=== PATIENT | male | born 1970 | race Caucasian/White ===

== ENCOUNTER 2021-09-17 09:03 | Emergency (ER) | payer OTHER ==
[~2021-09-17] VITALS: Ht 177.8 cm; Wt 93.2 kg
--- NOTE | 2021-09-17 09:13 | PHYS DOC ---
Adult General Chief Complaint Chief Complaint: SHORTNESS OF BREATH HPI HPI Patient is a 51-year-old male presenting via EMS for shortness of breath. Reports onset was last night while at rest and subsequently had difficulty sleeping overnight. Sitting up made better, laying down made worse. Denies any pain just feels like he cannot take a deep breath then. Timing of symptoms has been constant since onset. Associated symptoms include increased feelings of claustrophobia and anxiety. He is concerned as he recently had outpatient right knee surgery 6 days ago and has been on aspirin therapy only, no prior history of blood clots and/or pulmonary embolism. Chews tobacco and abuses alcohol daily admitting to x2 drinks of either beer or vodka without other drug use. Patient unvaccinated against COVID-19 with recent positive infection diagnosed August 25, otherwise, no other pertinent medical issues disclosed. EMS report that on arrival he was found to be tachycardic otherwise hemodynamically stable and was subsequently brought to our ER for evaluation Review of Systems Review of Systems Fourteen body systems of review of systems have been reviewed. See HPI for pertinent positives and negative responses, other stack all other systems are negative, non-pertinent or non-contributory Physical Exam Physical Exam Constitutional: Well developed, well nourished, no acute distress, non-toxic appearance. HENT: Normocephalic, atraumatic, bilateral external ears normal, oropharynx moist, no oral exudates, nose normal. Eyes: PERRLA, EOMI, conjunctiva normal, no discharge. Neck: Normal range of motion, no tenderness, supple, no stridor. Cardiovascular: Heart rate regular, sinus rhythm, no murmurs rubs or gallops Lungs & Thorax: Bilateral breath sounds clear to auscultation Abdomen: Bowel sounds normal, soft, no tenderness, no masses, no pulsatile masses. Nonsurgical abdomen, no peritoneal signs Skin: Warm, dry, no erythema, no rash. Back: No tenderness, no CVA tenderness. Extremities: No tenderness, no cyanosis, no clubbing, ROM intact, no edema. Neurologic: Alert and oriented X 3, grossly normal motor & sensory function, no focal deficits noted. Psychologic: Anxious affect and mood Current Patient Data Vital Signs Vital Signs Date Time Temp Pulse Resp B/P (MAP) Pulse Ox O2 Delivery O2 Flow Rate FiO2 09/17/21 09:12 97.8 118 24 174/108 (130) 97 Room Air Vital Signs Date Time Temp Pulse Resp B/P (MAP) Pulse Ox O2 Delivery O2 Flow Rate FiO2 09/17/21 09:12 97.8 118 24 174/108 (130) 97 Room Air Lab Results Laboratory Tests Test 09/17/21 09:28 09/17/21 09:30 White Blood Count 4.9 x10^3/uL Red Blood Count 3.71 x10^6/uL Hemoglobin 12.0 g/dL Hematocrit 34.9 % Mean Corpuscular Volume 94 fL Mean Corpuscular Hemoglobin 32 pg Mean Corpuscular Hemoglobin Concent 34 g/dL Red Cell Distribution Width 12.9 % Platelet Count 254 x10^3/uL Neutrophils (%) (Auto) 59 % Lymphocytes (%) (Auto) 26 % Monocytes (%) (Auto) 10 % Eosinophils (%) (Auto) 5 % Basophils (%) (Auto) 1 % Neutrophils # (Auto) 2.9 x10^3uL Lymphocytes # (Auto) 1.3 x10^3/uL Monocytes # (Auto) 0.5 x10^3/uL Eosinophils # (Auto) 0.2 x10^3/uL Basophils # (Auto) 0.0 x10^3/uL Sodium Level 142 mmol/L Potassium Level 3.8 mmol/L Chloride Level 104 mmol/L Carbon Dioxide Level 28 mmol/L Anion Gap 10 Blood Urea Nitrogen 9 mg/dL Creatinine 1.0 mg/dL Estimated GFR (Cockcroft-Gault) 78.8 BUN/Creatinine Ratio 9 Glucose Level 102 mg/dL Calcium Level 8.6 mg/dL Total Bilirubin 0.6 mg/dL Aspartate Amino Transf (AST/SGOT) 64 U/L Alanine Aminotransferase (ALT/SGPT) 84 U/L Alkaline Phosphatase 87 U/L Troponin I High Sensitivity 6 ng/L LG-Iqx-R-Type Natriuretic Peptide 137 pg/mL Total Protein 7.0 g/dL Albumin 3.3 g/dL Albumin/Globulin Ratio 0.9 Influenza Type A (Rapid) Negative Influenza Type B (Rapid) Negative SARS-CoV-2 Antigen (Rapid) Negative Current Medications Medications (Trade) Dose Ordered Sig/Jessica Route PRN Reason Start Time Stop Time Status Last Admin Dose Admin Iohexol (Omnipaque 350 Mg/ml) 100 ml 1X ONCE IV 09/17/21 09:30 09/17/21 09:33 DC EKG EKG EKG ordered and interpreted by myself at 0933 hrs. as sinus rhythm at 94 bpm, unremarkable intervals, no axis deviation, T wave inversion noted in lead III, no acute ischemic findings specifically no right heart strain, no STEMI Radiology/Procedures Radiology/Procedures CTA CHEST INDICATION: SHOB WITH RECENT SURGERY Comparison: None. TECHNIQUE: Following the uneventful administration of 99 mL intravenous contrast axial CT sections were obtained through the lungs and upper abdomen. Multiplanar reconstructions and MIP images were obtained. PQRS compliance statement: One or more of the following individualized dose reduction techniques were utilized for this examination: 1. Automated exposure control 2. Adjustment of the mA and/or kV according to patient size 3. Use of iterative reconstruction technique FINDINGS: Pulmonary arteries: No evidence of pulmonary thromboembolic disease Lungs and Airways: No pulmonary mass or consolidation. No abnormality of the central airways. Pleura: The pleural spaces are normal. Heart and Mediastinum: The visualized thyroid is normal in size and attenuation. No axillary or supraclavicular lymphadenopathy. No mediastinal, hilar or retrocrural lymphadenopathy. Normal cardiac size. No pericardial effusion. Coronary artery atherosclerotic disease. Normal caliber thoracic aorta. Abdomen: Limited images through the upper abdomen show no abnormality of the visualized organs. Bones and Soft Tissues: The visualized bones and chest wall soft tissues are within normal limits. IMPRESSION: 1. No evidence of pulmonary thromboembolic disease. 2. No pulmonary mass or consolidation. 3. Coronary artery atherosclerotic disease Electronically signed by: Baljinder Box MD (09/17/2021 9:53 AM) [id number] Heart Score C/O Chest Pain: No HEART Score for Chest Pain: HEART Score for Chest Pain Response (Comments) Value History Slighlty/Non-Suspicious 0 ECG Normal 0 Age < 45 0 Risk Factors No Risk Factors 0 Troponin < Normal Limit 0 Total 0 Risk Factors: Risk Factors: DM, Current or recent (<one month) smoker, HTN, HLP, family history of CAD, obesity. Risk Scores: Risk Factors: DM, Current or recent (<one month) smoker, HTN, HLP, family history of CAD, obesity. Course & Med Decision Making Course & Med Decision Making ABCs unremarkable except for tachycardia on arrival likely due to anxiety that self resolved with verbal de-escalation HPI physical exam comprehensive ER work-up nonconcerning for any emergent or surgical issues, no PE per CT angiogram Reviewed patient case, he is on appropriate aspirin and other medications status post right lower extremity surgery. Patient has follow-up with primary care physician this afternoon with plans for close outpatient follow-up with surgeon I disclosed this might be an acute presentation more concerning pathology and so, strict return cautions discussed at length good understanding by patient and prior to ER departure Tiffany Disclaimer Tiffany Disclaimer This electronic medical record was generated, in whole or in part, using a voice recognition dictation system. Departure Departure: Impression: Primary Impression: Atypical chest pain Disposition: HOME / SELF CARE / HOMELESS Condition: STABLE Additional Instructions: You were seen for chest pain. Your workup did not show any acute abnormalities today, but does not indicate that you do not have underlying cardiovascular disease. You do need to follow up with your primary doctor and potentially a digital developer for further evaluation and treatment. You should return to the ED if you develop worsening chest pain, shortness of breath, fever, abnormal sweating, leg swelling, or any other new or concerning symptoms. YVES ROBERTO DO Sep 17, 2021 09:13
[2021-09-17] MEDS ORDERED: IOHEXOL 350 MG/ML 100 ML VIAL. IV ONE (09:30)
--- NOTE | 2021-09-17 09:55 | RAD ---
CTA CHEST INDICATION: SHOB WITH RECENT SURGERY Comparison: None. TECHNIQUE: Following the uneventful administration of 99 mL intravenous contrast axial CT sections we re obtained through the lungs and upper abdomen. Multiplanar reconstructions and MIP images were obta ined. PQRS compliance statement: One or more of the following individualized dose reduction techniques were utilized for this examinat ion: 1. Automated exposure control 2. Adjustment of the mA and/or kV according to patient size 3. Use of iterative reconstruction technique FINDINGS: Pulmonary arteries: No evidence of pulmonary thromboembolic disease Lungs and Airways: No pulmonary mass or consolidation. No abnormality of the central airways. Pleura: The pleural spaces are normal. Heart and Mediastinum: The visualized thyroid is normal in size and attenuation. No axillary or supra clavicular lymphadenopathy. No mediastinal, hilar or retrocrural lymphadenopathy. Normal cardiac size . No pericardial effusion. Coronary artery atherosclerotic disease. Normal caliber thoracic aorta. Abdomen: Limited images through the upper abdomen show no abnormality of the visualized organs. Bones and Soft Tissues: The visualized bones and chest wall soft tissues are within normal limits. IMPRESSION: 1. No evidence of pulmonary thromboembolic disease. 2. No pulmonary mass or consolidation. 3. Coronary artery atherosclerotic disease Electronically signed by: Baljinder Box MD (09/17/2021 9:53 AM) [id number]
[2021-09-17 10:02] LABS: BASO % 1 % (0-3); EOS # 0.2 x10^3/uL (0.0-0.7); EOS % 5 % (0-3); HEMATOCRIT 34.9 % (39.0-53.0); LYMPH # 1.3 x10^3/uL (1.0-4.8); LYMPH % 26 % (24-48); MEAN CORPUSCULAR HEMOGLOBIN 32 pg (25-35); MEAN CORPUSCULAR HGB CONC 34 g/dL (31-37); MEAN CORPUSCULAR VOLUME 94 fL (79-100); MONO # 0.5 x10^3/uL (0.0-1.1); MONO % 10 % (0-9); NEUT # 2.9 x10^3uL (1.8-7.7); NEUT % 59 % (31-73); PLATELET COUNT 254 x10^3/uL (140-400); RED BLOOD COUNT 3.71 x10^6/uL (4.30-5.70); RED CELL DISTRIBUTION WIDTH 12.9 % (11.5-14.5); WHITE BLOOD COUNT 4.9 x10^3/uL (4.0-11.0)
[2021-09-17 10:03] LABS: CALCIUM 8.6 mg/dL (8.5-10.1); GFR 78.8; POTASSIUM 3.8 mmol/L (3.5-5.1)
[2021-09-17 10:16] LABS: INFLUENZA A PATIENT NEGATIVE (NEGATIVE); INFLUENZA B PATIENT NEGATIVE (NEGATIVE)
[2021-09-17 10:16] LABS: ALBUMIN 3.3 g/dL (3.4-5.0); ALBUMIN/GLOBULIN RATIO 0.9 (1.0-1.7); TOTAL BILIRUBIN 0.6 mg/dL (0.2-1.0)
--- NOTE | 2021-09-17 10:34 | PDOC2 ---
CARDIAC CONSULT PAST SURGICAL HISTORY Past Surgical History: Other (right knee surgery) CURRENT MEDICATIONS Current Medications Current Medications Iohexol (Omnipaque 350 Mg/ml) 100 ml 1X ONCE IV ; Start 09/17/21 at 09:30; Stop 09/17/21 at 09:33; Status DC ALLERGIES Allergies: Coded Allergies: No Known Drug Allergies (Unverified , 09/17/21) VITALS Vital Signs Vital Signs Date Time Temp Pulse Resp B/P (MAP) Pulse Ox O2 Delivery O2 Flow Rate FiO2 09/17/21 09:12 97.8 118 24 174/108 (130) 97 Room Air LABS LABS Laboratory Tests Test 09/17/21 09:28 09/17/21 09:30 White Blood Count 4.9 x10^3/uL (4.0-11.0) Red Blood Count 3.71 x10^6/uL (4.30-5.70) Hemoglobin 12.0 g/dL (13.0-17.5) Hematocrit 34.9 % (39.0-53.0) Mean Corpuscular Volume 94 fL (79-100) Mean Corpuscular Hemoglobin 32 pg (25-35) Mean Corpuscular Hemoglobin Concent 34 g/dL (31-37) Red Cell Distribution Width 12.9 % (11.5-14.5) Platelet Count 254 x10^3/uL (140-400) Neutrophils (%) (Auto) 59 % (31-73) Lymphocytes (%) (Auto) 26 % (24-48) Monocytes (%) (Auto) 10 % (0-9) Eosinophils (%) (Auto) 5 % (0-3) Basophils (%) (Auto) 1 % (0-3) Neutrophils # (Auto) 2.9 x10^3uL (1.8-7.7) Lymphocytes # (Auto) 1.3 x10^3/uL (1.0-4.8) Monocytes # (Auto) 0.5 x10^3/uL (0.0-1.1) Eosinophils # (Auto) 0.2 x10^3/uL (0.0-0.7) Basophils # (Auto) 0.0 x10^3/uL (0.0-0.2) Sodium Level 142 mmol/L (136-145) Potassium Level 3.8 mmol/L (3.5-5.1) Chloride Level 104 mmol/L (98-107) Carbon Dioxide Level 28 mmol/L (21-32) Anion Gap 10 (6-14) Blood Urea Nitrogen 9 mg/dL (8-26) Creatinine 1.0 mg/dL (0.7-1.3) Estimated GFR (Cockcroft-Gault) 78.8 BUN/Creatinine Ratio 9 (6-20) Glucose Level 102 mg/dL (70-99) Calcium Level 8.6 mg/dL (8.5-10.1) Total Bilirubin 0.6 mg/dL (0.2-1.0) Aspartate Amino Transf (AST/SGOT) 64 U/L (15-37) Alanine Aminotransferase (ALT/SGPT) 84 U/L (16-63) Alkaline Phosphatase 87 U/L (46-116) Troponin I High Sensitivity 6 ng/L (4-75) BP-Qao-H-Type Natriuretic Peptide 137 pg/mL (0-124) Total Protein 7.0 g/dL (6.4-8.2) Albumin 3.3 g/dL (3.4-5.0) Albumin/Globulin Ratio 0.9 (1.0-1.7) Influenza Type A (Rapid) Negative (NEGATIVE) Influenza Type B (Rapid) Negative (NEGATIVE) SARS-CoV-2 Antigen (Rapid) Negative (NEGATIVE) DENISE TADEO APRN Sep 17, 2021 10:34
[2021-09-17 10:54] VITALS: BP 152/87
[2021-09-17] MEDS ORDERED: oxyCODONE IR 5 MG TABLET PO PRN (11:00)
--- NOTE | 2021-09-17 12:05 | EKG ---
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
== END 2021-09-17 11:49 | disposition home or self-care (01) ==
LOC: ER 09:03
DX: R07.89 Other chest pain (principal); R06.02 Shortness of breath; R00.0 Tachycardia, unspecified; Z20.822 Contact with and (suspected) exposure to COVID-19
CPT/HCPCS: 71275; 80053; 83880; 84484; 85025; 87428; 93005; 99285; C9803; U0003

== ENCOUNTER 2021-09-17 15:42 | Emergency (ER) | payer OTHER ==
[~2021-09-17] VITALS: Ht 177.8 cm; Wt 93.2 kg
--- NOTE | 2021-09-17 16:50 | PHYS DOC ---
Past History Past Surgical History: Other Additional Past Surgical Histo: R knee (YVES ROBERTO DO) Alcohol Use: Heavy (YVES ROBERTO DO) Adult General HPI HPI Patient is a 51-year-old male previously seen by myself earlier in the day prese nting via POV for chest pain. He had extensive evaluation this morning after recent right knee surgery and fear of potential blood clot. Comprehensive ER work-up this morning was unremarkable that included CT angiogram of the chest that was negative for any pulmonary emboli. Reports since ER discharge in the morning, he went home and followed up with outpatient primary care physician. Reports he ate x2 hamburgers and after his and child left the house he started developing substernal chest pain that did not radiate. Admits he has history of GERD and anxiety but this felt different prompting him to call his and transported back to our facility for evaluation. Reports shortly after arrival while waiting in the waiting room his chest pain improved. States he just does not feel right (YVES ROBERTO DO) Review of Systems Review of Systems Fourteen body systems of review of systems have been reviewed. See HPI for pertinent positives and negative responses, other stack all other systems are negative, non-pertinent or non-contributory (YVES ROBERTO DO) Allergies Allergies Allergies Coded Allergies Type Severity Reaction Last Updated Verified No Known Drug Allergies 09/17/21 No (YVES ROBERTO DO) Physical Exam Physical Exam Constitutional: Well developed, well nourished, no acute distress, non-toxic appearance. HENT: Normocephalic, atraumatic, bilateral external ears normal, oropharynx moist, no oral exudates, nose normal. Eyes: PERRLA, EOMI, conjunctiva normal, no discharge. Neck: Normal range of motion, no tenderness, supple, no stridor. Cardiovascular: Heart rate regular, sinus rhythm, no murmurs rubs or gallops Lungs & Thorax: Bilateral breath sounds clear to auscultation Abdomen: Bowel sounds normal, soft, no tenderness, no masses, no pulsatile masses. Nonsurgical abdomen, no peritoneal signs Skin: Warm, dry, well-appearing postoperative right knee with mild ecchymosis and well-appearing sutures without any concerning signs of infection Back: No tenderness, no CVA tenderness. Extremities: Tenderness appropriate with postoperative surgical changes of right knee, negative Homans' sign, no cyanosis, no clubbing, ROM intact, no edema. Neurologic: Alert and oriented X 3, grossly normal motor & sensory function, no focal deficits noted. Psychologic: Anxious affect and mood (YVES ROBERTO DO) Current Patient Data Vital Signs Vital Signs Date Time Temp Pulse Resp B/P (MAP) Pulse Ox O2 Delivery O2 Flow Rate FiO2 09/17/21 16:30 98.1 98 22 161/104 (123) 97 Room Air Vital Signs Date Time Temp Pulse Resp B/P (MAP) Pulse Ox O2 Delivery O2 Flow Rate FiO2 09/17/21 18:16 86 22 155/88 (110) 95 Room Air 09/17/21 16:30 98.1 (YVES ROBERTO DO) EKG EKG EKG ordered and interpreted by myself at 1739 hrs. as sinus rhythm at 74 bpm, unremarkable intervals, no axis deviation, T wave inversion noted in lead III otherwise no ischemic findings, no STEMI (YVES ROBERTO DO) Heart Score Risk Factors: Risk Factors: DM, Current or recent (<one month) smoker, HTN, HLP, family history of CAD, obesity. Risk Scores: Risk Factors: DM, Current or recent (<one month) smoker, HTN, HLP, family history of CAD, obesity. (YVES ROBERTO DO) C/O Chest Pain: Yes HEART Score for Chest Pain: HEART Score for Chest Pain Response (Comments) Value History Slighlty/Non-Suspicious 0 ECG Normal 0 Age >45 - < 65 1 Risk Factors 1 or 2 Risk Factors 1 Troponin < Normal Limit 0 Total 2 (COREY ESTRADA MD) Course & Med Decision Making Course & Med Decision Making ABCs unremarkable HPI obtained from patient and prior ER work-up reviewed. Patient and here extremely anxious about patient's chest pain. He has taken appropriate aspirin today. Nitro administered with improvement in symptoms. Patient and requesting repeat cardiac work-up to rule out any emergent or surgical issues. Patient pending work-up results at time of my shift ending. Comprehensive signout given to oncoming physician. Please defer to Dr. Estrada's documentation regarding future care of patient in ER setting (YVES ROBERTO DO) Course & Med Decision Making Patient care handed off to me at checkout pending troponin. Second patient work-up today for cardiac etiology negative. Does not appear to be cardiac but discussed with patient nothing is 100% and needs to follow-up with his primary care physician for reevaluation. Patient awake alert and oriented no acute distress and asymptomatic. Vital signs notable for mild hypertension. Pain controlled. Discussed all findings with family. Advised to follow-up in the morning with surgeon and primary care physician. Gave return precautions to the ED. Family grateful, verbalized understanding and agreed with plan of discharge. (COREY ESTRADA MD) Dragon Disclaimer Dragon Disclaimer This electronic medical record was generated, in whole or in part, using a voice recognition dictation system. (YVES ROBERTO DO) Departure Departure: Impression: Primary Impression: Knee pain Additional Impressions: Anxiety Chest pain Referrals: MELCHOR HERNANDEZ DO (PCP) Patient Instructions: Anxiety and Panic Attacks, Chest Pain (Nonspecific) Additional Instructions: Thank you for coming into the emergency department tonight and allowing us to take care of you. Please read the attached information carefully to go over things we discussed. Please call both your primary care physician and your surgeon in the morning to update on your ED visit and set up immediate follow- ups for reevaluation. Please come back with new or concerning symptoms as discussed. Problem Qualifiers YVES ROBERTO DO Sep 17, 2021 16:50 COREY ESTRADA MD Sep 17, 2021 18:31
[2021-09-17] MEDS ORDERED: NITROGLYCERIN SUBLINGUAL 0.4 MG BOTTLE OF 25. SL PRN (17:30)
[2021-09-17 17:55] LABS: BASO % 0 % (0-3); EOS # 0.2 x10^3/uL (0.0-0.7); EOS % 3 % (0-3); HEMATOCRIT 33.2 % (39.0-53.0); HEMOGLOBIN 11.2 g/dL (13.0-17.5); LYMPH % 17 % (24-48); MEAN CORPUSCULAR HEMOGLOBIN 32 pg (25-35); MEAN CORPUSCULAR HGB CONC 34 g/dL (31-37); MEAN CORPUSCULAR VOLUME 94 fL (79-100); MONO # 0.5 x10^3/uL (0.0-1.1); MONO % 9 % (0-9); NEUT # 3.9 x10^3uL (1.8-7.7); NEUT % 70 % (31-73); PLATELET COUNT 236 x10^3/uL (140-400); RED BLOOD COUNT 3.52 x10^6/uL (4.30-5.70); RED CELL DISTRIBUTION WIDTH 12.8 % (11.5-14.5); WHITE BLOOD COUNT 5.6 x10^3/uL (4.0-11.0)
[2021-09-17 18:04] LABS: CALCIUM 8.8 mg/dL (8.5-10.1); GFR 78.8; POTASSIUM 3.7 mmol/L (3.5-5.1)
[2021-09-17 18:16] VITALS: BP 155/88
[2021-09-17] MEDS ORDERED: diazePAM 5 MG TABLET. PO ONE (18:30)
--- NOTE | 2021-09-19 03:06 | EKG ---
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
== END 2021-09-17 18:40 | disposition home or self-care (01) ==
LOC: ER 15:42
DX: F41.9 Anxiety disorder, unspecified (principal); R07.2 Precordial pain; M25.561 Pain in right knee; F10.20 Alcohol dependence, uncomplicated; Y90.9 Presence of alcohol in blood, level not specified
CPT/HCPCS: 36415; 80048; 83880; 84484; 85025; 93005; 99284